=== PATIENT | male | born 2000 | race Caucasian/White ===

== ENCOUNTER 2020-10-01 02:16 | Emergency (ER) | payer OTHER ==
[~2020-10-01] VITALS: Ht 175.3 cm; Wt 136.1 kg
[2020-10-01 02:20] VITALS: BP 148/97
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
[2020-10-01 02:40] VITALS: BP 148/97
--- NOTE | 2020-10-01 02:40 | NUR ---
PATIENT [facility] DEPT. PATIENT EXAMINED BY DR. IGLESIAS. PATIENT MEDICALLY CLEARED AND RELEASED IN CUSTODY IN STABLE CONDITION. ORIGINAL PRE-BOOK FORM GIVEN TO OFFICER Jimi SEAMAN NUMBER [id number].
== END 2020-10-01 02:40 ==
LOC: MED 02:16
DX: Z04.1 Encounter for examination and observation following transport accident (principal); Z02.89 Encounter for other administrative examinations; V89.2XXA Person injured in unspecified motor-vehicle accident, traffic, initial encounter; Y93.89 Activity, other specified; Y92.89 Other specified places as the place of occurrence of the external cause; Y99.8 Other external cause status
CPT/HCPCS: 99283